=== PATIENT | female | born 1970 | race Caucasian/White ===

== ENCOUNTER 2022-12-29 11:30 | Outpatient (RCR) | payer OTHER, SELFPAY ==
--- NOTE | 2022-11-06 12:26 | HP.PTEVAL_ITS ---
Patient's Visit Information SHAY CUMMINGS is a 52 year old F referred to Physical Therapy by Dr. Kirsty Browning MD with a diagnosis of MIXED INCONTINENCE. Date of Evaluation: 11/06/22 Physical Therapist: Cady Mendenhall PT, Cert MDT - Visit Plan Frequency: 1x/Week Duration: 8-12 WKS Plan: PF THERAPY FOR STRENGTHENING, LENGTHENING/RELAXATION AND ENDURANCE TRAINING. URINARY URGE AND FREQUENCY EDUCATION. HEALTHY BLADDER HABIT EDUCATION. TRAINING IN COORDINATION OF PELVIC FLOOR MUSCULATURE WITH HIP AND CORE (TRANSVERSE ABDOMINUS) MUSCULATURE. POSTURE CORRECTION/STRENGTHENING. CORE STRENGTHENING. FLORY LE ROM, STRETCHING AND STRENGTHENING. TRAINING IN ABDOMINAL CAVITY PRESSURE MGMT WITH ADL'S. 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 Disability: NO. Present symptoms: LEAKING WITH COUGHING AND SNEEZING. ALSO RANDOMLY LEAKING URINE. DOES NOT ALWAYS MAKE IT TO THE BATHROOM IN TIME WHEN GETS URGE. PATIENT DENIES PAIN. Present since: ABOUT A YEAR. Pain Scale: N/A. Is it getting better, worse or staying the same: WORSENING. Commenced as a result of: NO APPARENT REASON. Worse: COUGHING, SNEEZING, AROUND CYCLE TIME. Better: NOTHING. Disturbed sleep: GETTING UP AT NIGHT TO URINATE 0-1 TIMES A NIGHT. Previous history/Previous treatment: NOTHING. Treatment this episode: DIET CHANGE RECOMMENDATIONS BY DR. BROWNING. Gait: NORMAL. How long can you delay the need to urinate: VARIES. Prolapse (Falling out feeling): NO. Frequency of Urination: 5 TO 8 TIMES A DAY. Ability to stop urine flow: YES. Ability to initiate urine stream: YES. Dyspareunia: YES BUT PATIENT RELATES IT TO DRYNESS. Bowel Incontinence: NO. Accidents: NO. Unexplained weight loss: NO. Imaging: NO X-RAYS OR MRI'S. US SHOWING GOOD BLADDER EMPTYING PER PATIENT REPORT. PMH/Recent major surgery: RUPTURED UTERUS 3RD . ANXIETY. 2 C-SECTIONS. SOME HISTORY OF LBP AND PERIODIC CHIROPRACTIC TREATMENTS (MAINLY NECK NOT LB PROBLEMS). - Objective Sitting/Standing Posture: FAIR. Active Correction of posture: NE. Other Observations: INDEP GAIT AND TRANSFERS. Sensory deficit: FLORY LE LIGHT TOUCH SENSATION GROSSLY INTACT AND SYMMETRICAL. ROM deficit: FLORY LE HIP ROTATION, HIP ADD, HS AND GASTROC SOLEUS COMPLEX TIGHTNESS. Motor deficit: FLORY LE'S 5/5 WITH MMT'ING EXCEPT HIPS 4/5. Dural Signs: NEGATIVE FLORY LE'S. Lumbar mvmt loss: flex - MIN. ext - MIN TO MOD. R SG - MIN. L SG - MIN. PATIENT DENIES PAIN WITH LUMBAR ROM TESTING. Core strength: POOR. Palpation: NO PELVIC EXAM TODAY. PATIENT COMMUNICATES A GOOD UNDERSTANDING OF HOW TO CONTRACT PF MUSCLES AND REPORTS ABILITY TO HOLD X 10 SECS. FUNCTIONAL SCREEN: Incontinence Impact Questionnaire Score: 2. Urogenital Distress Inventory Score: 4. TREATMENT: PELVIC FLOOR ANATOMY EDUCATION. HEP INSTRUCTION: QUICK FLICKS X 8, 3 TIMES A DAY AND DIAPHRAGMATIC BREATHING X 5 MIN A DAY. PATIENT DEMONSTRATED/COMMUNICATED A GOOD UNDERSTANDING OF ALL INSTRUCTIONS AFTER GIVEN. WRITTEN HEP PROVIDED. - Goals Goal 1:: DECREASE URINARY LEAKING TO ONE OR LESS TIMES A DAY Goal Time Frame: 8-12 Weeks Goal 2:: PATIENT WILL SUCCESSFULLY DELAY VOIDING FOR 30 MINUTES WHEN URGENCY OCCURS Goal Time Frame: 6-8 Weeks Goal 3:: PATIENT WILL DEMONSTRATE/COMMUNICATE 10 CONSISTENT AND CONSECUTIVE 10 SECOND PELVIC FLOOR MUSCLE CONTRACTIONS TO DEMONSTRATE IMPROVED PELVIC FLOOR ENDURANCE. Goal Time Frame: 8-12 Weeks Goal 4:: DEVELOP HEALTHY FLUID INTAKE HABITS WITH FLUID INTAKE OF ? BODY WEIGHT IN OUNCES PER DAY AND 2/3 BEING WATER. Goal Time Frame: 2-4 Weeks Goal 5:: NORMALIZE VOIDING FREQUENCEY TO EVERY 3-4 HOURS. Goal Time Frame: 4-6 Weeks Goal 6:: PATIENT WILL BE INDEP WITH A HEP/HOME INSTRUCTIONS FOR CONTINUED IMPROVEMENT ONCE FORMAL PHYSICAL THERAPY CONCLUDES Goal Time Frame: 8-12 Weeks - Anticipated Interventions Patient/Client Instruction: Educate patient on: Condition, Plan of Care, Risk Factors For the Purpose of:: To improve self management Therapeutic Exercise to Include: Strength training, Endurance training, Flexibilty training, Neuromotor development For the Purpose of:: To improve muscle performance and motor function, To i ncrease tolerance to activity/condition/position, To improve ability of physical actions for home/community/work/leisure Thank you for the opportunity to evaluate your patient. For Medicare and Medicare HMO plans, please review the plan of care and approve it. It will need to be FAXED BACK to us at [phone] for Medicare purposes. For Medicare only, by signing this I certify the plan of care. Please let me know if there are questions or concerns regarding this plan of care. Physician Signature: Date:
--- NOTE | 2022-12-29 12:02 | HP.PTDCSUM ---
Discharge Summary D/C summary: It has been my pleasure to treat SHAY CUMMINGS referred by Dr. Kirsty Browning MD, with the diagnosis of MIXED INCONTINENCE for a total of 7 visit(s). Discharge Date: 12/29/22 Please see the following information for a summary of their discharge status. Subjective Subjective: PATIENT REPORTS NEW EX'S ARE GOING WELL. STATES SHE ONLY HAS SOME LEAKING WHEN SHE MISSES DOING THE EX'S. ABLE TO LIFT BOXES WITH OUT LEAKING NOW. DID HAVE SOME LEAKING THE OTHER DAY WHILE CARRYING A BABY BUT HAD PRETTY FULL BLADDER. FOLLOW UP PENDING WITH DR. BROWNING IN JAN 2023. Overall Improvement % Improvement: 90 Objective Objective/Function: ALL GOALS HAVE BEEN MET AND PATIENT IS APPROPRIATE FOR AND AGREEABLE TO DISCHARGE. Goals Goal 1:: DECREASE URINARY LEAKING TO ONE OR LESS TIMES A DAY Goal Progress: Goal Met Goal 2:: PATIENT WILL SUCCESSFULLY DELAY VOIDING FOR 30 MINUTES WHEN URGENCY OCCURS Goal Progress: Goal Met Goal 3:: PATIENT WILL DEMONSTRATE/COMMUNICATE 10 CONSISTENT AND CONSECUTIVE 10 SECOND PELVIC FLOOR MUSCLE CONTRACTIONS TO DEMONSTRATE IMPROVED PELVIC FLOOR ENDURANCE. Goal Progress: Goal Met Goal 4:: DEVELOP HEALTHY FLUID INTAKE HABITS WITH FLUID INTAKE OF ? BODY WEIGHT IN OUNCES PER DAY AND 2/3 BEING WATER. Goal Progress: Goal Met Goal 5:: NORMALIZE VOIDING FREQUENCEY TO EVERY 3-4 HOURS. Goal Progress: Goal Met Goal 6:: PATIENT WILL BE INDEP WITH A HEP/HOME INSTRUCTIONS FOR CONTINUED IMPROVEMENT ONCE FORMAL PHYSICAL THERAPY CONCLUDES Goal Progress: Goal Met Plan Plan: D/C TO INDEP HEP. D/C Information d/c sentence: If there are questions or concerns regarding this patient's physical therapy, please feel free to call me at [phone]. Thank you for the referral of this patient. Sincerely, Cady Mendenhall, PT, Cert MDT
== END 2022-12-29 14:21 | disposition home or self-care (01) ==
LOC: PT 11:30
PROVIDERS: PCP Family Medicine; Referring Provider Urology; Visit Provider Urology
DX: N39.46 Mixed incontinence (principal)
CPT/HCPCS: 97162; 97530

== ENCOUNTER 2024-07-14 05:48 | Day surgery (SDC) | payer OTHER, SELFPAY ==
--- NOTE | 2024-07-07 11:02 | EKG12_ITS ---
Test Reason : PREOP Blood Pressure : */* mmHG Vent. Rate : 64 BPM Atrial Rate : 64 BPM P-R Int : 168 ms QRS Dur : 92 ms QT Int : 410 ms P-R-T Axes : 62 69 56 degrees QTcB Int : 422 ms Normal sinus rhythm Normal ECG Confirmed by Shayan Zamarripa ([id number]), design editor EDI JAMES ([id number]) on 07/08/2024 5:57:13 AM Referred By: Kirsty Pacheco Confirmed By: Shayan Zamarripa
[2024-07-07 11:55] LABS: Hematocrit 40.7 % (37-47); Hemoglobin 13.4 g/dL (12.0-15.0); Mean Corp Hgb Conc 32.9 g/dL (32-36); Mean Corpuscular Hgb 29.3 pg (27.0-32.0); Mean Corpuscular Volume 88.9 fL (81-99); Mean Platelet Vol. 9.3 fl (6.2-12.0); Platelet Count 283 K/mm3 (150-450); RBC Distribution Width CV 12.4 % (11.6-14.6); RBC Distribution Width SD 39.8 fl (35.1-43.9); Red Blood Count 4.58 M/mm3 (4.2-5.4); White Blood Count 5.4 K/mm3 (4.4-11.0)
[2024-07-07 12:23] LABS: Anion Gap 7 (5-15); BUN 12 mg/dL (7-18); BUN/Creat Ratio 15.1 RATIO (10-20); Calcium,Total 9.2 mg/dL (8.5-10.1); Chloride 104 mmol/L (98-107); Creatinine, Serum 0.79 mg/dL (0.55-1.02); EST Glomerular Filtration Rate 81 mL/min (>60); Est Glom Filt Rate - Afr Amer 98 mL/min (>60); Glucose 101 mg/dL (74-106); Potassium 4.2 mmol/L (3.5-5.1); Sodium Level 137 mmol/L (136-145)
[2024-07-07 12:24] LABS: Hemoglobin A1c 6.8 % (3.8-5.6)
[2024-07-14] VITALS (8 sets, daily range): BP systolic 111–125; BP diastolic 70–82; PULSE 59–79; RESP 14–20; TEMP 36.1–36.8; O2SAT 94–97; BMI 28.0
[2024-07-14] MEDS: 0.9% Normal Saline (1000mL) 1,000 ML 15 ML IV (06:46)
--- NOTE | 2024-07-14 07:06 | PRE.ANES_ITS ---
ASA Classification* ASA Classification ASA Classification: 2 Assessment & Plan Anesthesia* Anesthesia Assessment Anesthesia Assessment: Discussed sedation and/or anesthesia options, risks, benefits, and alternatives with patient/parents/legal guardian/POA. Questions invited. The patient/parents/legal guardian/POA seems to understand and agrees to proceed with anesthesia plan. Reviewed the physical assessment, medical history, allergy history and patient home medications list prior to surgery/procedure/anesthetic and documented any changes. Performed airway and anesthesia risk assessments. Anesthesia Type Anesthesia Type: General Anesthesia Focused Assessment* Temperature: 98.2 F Pulse Rate: 59 Blood Pressure: 125/70 Respiratory Rate: 16 Pulse Ox: 95 Airway Assessment Mouth opens: >3 cm Mallampati Score: II Focused Labs Anesthesia Preop lab: CBC WBC 5.4 K/mm3 (4.4-11.0) 07/07/24 11:35 RBC 4.58 M/mm3 (4.2-5.4) 07/07/24 11:35 Hgb 13.4 g/dL (12.0-15.0) 07/07/24 11:35 Hct 40.7 % (37-47) 07/07/24 11:35 Plt Count 283 K/mm3 (150-450) 07/07/24 11:35 CHEMISTRY Potassium 4.2 mmol/L (3.5-5.1) 07/07/24 11:35 Sodium 137 mmol/L (136-145) 07/07/24 11:35 BUN 12 mg/dL (7-18) 07/07/24 11:35 Creatinine 0.79 mg/dL (0.55-1.02) 07/07/24 11:35 Glucose 101 mg/dL (74-106) 07/07/24 11:35 TSH 2.12 uIU/mL (0.358-3.74) 03/23/13 09:31 COAG Pre-Assessment Diagnosis/Proposed Procedure Planned Operative Procedure(s): CYSTO MIDURETHERAL SLING Anesthesia History Anesthesia History - operator electronic warfare: Anesthesia History - operator electronic warfare Hx Hospitalization No 07/05/24 14:09 Any Problems With Anesthesia No 07/05/24 14:09 Cholinesterase deficiency No 07/05/24 14:09 You/Your Family Experience No 07/05/24 14:09 fever (hyperthermia) with Relationship Recent Exposure to Contagious No 07/14/24 06:32 Disease Does patient have nerve No 07/05/24 14:09 stimulator Patient instructed to have device shut off --Does patient have Pacemaker No 07/14/24 06:32 or ICD? When Was Last Pacemaker Check QUESTION #4 FULL TEXT: You/Your Family Experience fever (hyperthermia) with Anesthesia Last Oral Intake Last Oral intake: Last Oral Intake NPO since 21:00 07/14/24 06:32 Meds taken in AM with sips of No 07/14/24 06:32 water? Meds patient instructed to take am of surgery PONV PONV - operator electronic warfare: PONV - operator electronic warfare Female Yes 07/05/24 14:09 HX of Motion Sickness No 07/05/24 14:09 HX of N/V After Surgery No 07/05/24 14:09 Non-Smoker Yes 07/05/24 14:09 Duration of Surgery greater Yes 07/05/24 14:09 than 60 minutes Number of Risk Factors 3 07/05/24 14:09 PONV Score Moderate Risk 07/05/24 14:09 Height & Weight Height & Weight: Anesthesia: Height & Weight Height 5 ft 6 in 07/14/24 06:32 Weight: 79 kg 07/14/24 06:32 Body Mass Index (BMI) 28.0 07/14/24 06:32 Respiratory Assessment Respiratory Assessment - operator electronic warfare: Respiratory Tract Infection Hx - operator electronic warfare Hx Respiratory Tract Infection No 07/05/24 14:09 STOP Sleep Apnea STOP Sleep Apnea - operator electronic warfare: STOP Sleep Apnea - operator electronic warfare Hx Hypertension No 07/05/24 14:09 Hx Sleep Apnea No 07/05/24 14:09 CPAP BIPAP Do you snore loudly (louder No 07/05/24 14:09 than talking or can be heard Do you often feel tired/ No 07/05/24 14:09 fatigued/ sleepy during daytime? Has anyone observed you stop No 07/05/24 14:09 breathing during sleep? STOP Results Negative 07/05/24 14:09 QUESTION #5 FULL TEXT : Do you snore loudly (louder than talking or can be heard through closed doors)? 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 Specify any problems Hx of Preganancy in last 3 No 07/05/24 14:09 Months Nurse Filling Out Transfusion DSCHRIBER 07/05/24 14:09 & Questions: Date: 07/05/24 07/05/24 14:09 Time: 14:11 07/05/24 14:09 Patient unable to answer at this time (ie. confused, unrespo /Reproduction History /Reproductive History - operator electronic warfare: /Reproductive Hx- operator electronic warfare Hx Now No 07/05/24 14:09 Gestational Age (in weeks): EDC: Hx Hx Para Hx Section SAB No 07/05/24 14:09 Active Medications Active Medications: Current Medications Generic Name Dose Route Start Last Admin Trade Name Freq PRN Reason Stop Dose Admin Cefazolin Sodium 2 gm/ N/A 20 mls @ 400 mls/hr 07/14/24 07:30 IV 07/14/24 07:32 PREOP ONE Sodium Chloride 1,000 mls @ 15 mls/hr 07/14/24 06:25 07/14/24 06:46 IV 07/19/24 19:44 15 mls/hr .Q48H MP Administration Protocol [facility] Medical History Post-menopausal Anxiety Thyroid disease Diabetes Back pain Dietary restriction Non-smoker Leg cramps Home Medications ?Medication ?Instructions ?Recorded ?Last Taken ?Type dulaglutide 0.75 mg/0.5 mL 0.75 mg subcut QWEEK 07/05/24 07/06/24 History subcutaneous pen injector (Trulicity) escitalopram oxalate 20 mg tablet 20 mg PO DAILY 07/05/24 07/13/24 History estradiol 10 mcg vaginal tablet 10 mcg vaginal .COMPLEX 07/05/24 07/10/24 History (Yuvafem) metformin 500 mg tablet,extended 1,000 mg PO BID 07/05/24 07/13/24 History release 24 hr losartan 25 mg tablet 25 mg PO DAILY 07/14/24 07/13/24 History Allergy/AdvReac Type Severity Reaction Status Date / Time Sulfa (Sulfonamide Allergy Intermediate Hives Verified 07/14/24 06:26 Antibiotics) Surgical History Hx of colonoscopy Hx of wisdom tooth extraction Hx of lymph node excision History of Social History Smoking Status: Never smoker Review of Systems (Anesthesia) ROS Narrative System reviewed and no additional complaints, except as documented.
[2024-07-14 07:16] LABS: Bedside Glucose 164 mg/dL (74-106)
--- NOTE | 2024-07-14 07:50 | PCM.HP.STD ---
[facility] - General General Date of Service: 07/14/24 Chief Complaint: Stress urinary incontinence [facility] Narrative SHAY CUMMINGS, is a 54 F who presents for surgical intervention with a mid urethral sling for treatment of her stress urinary incontinence. Informed consent has been obtained. She has done outpatient testing including urodynamics. [facility] Medical History (Updated 07/14/24 @ 07:[address] Kirsty Pacheco MD) Stress incontinence Post-menopausal Anxiety Thyroid disease Diabetes Back pain Dietary restriction Non-smoker Leg cramps Home Medications ?Medication ?Instructions ?Recorded ?Last Taken ?Type dulaglutide 0.75 mg/0.5 mL 0.75 mg subcut QWEEK 07/05/24 07/06/24 History subcutaneous pen injector (Trulicity) escitalopram oxalate 20 mg tablet 20 mg PO DAILY 07/05/24 07/13/24 History estradiol 10 mcg vaginal tablet 10 mcg vaginal .COMPLEX 07/05/24 07/10/24 History (Yuvafem) metformin 500 mg tablet,extended 1,000 mg PO BID 07/05/24 07/13/24 History release 24 hr losartan 25 mg tablet 25 mg PO DAILY 07/14/24 07/13/24 History Allergy/AdvReac Type Severity Reaction Status Date / Time Sulfa (Sulfonamide Allergy Intermediate Hives Verified 07/14/24 06:26 Antibiotics) Surgical History Hx of colonoscopy Hx of wisdom tooth extraction Hx of lymph node excision History of Social History Smoking Status: Never smoker ROS Constitutional Constitutional: Reports systems reviewed and no addt'l complaints, except as documented; Denies anorexia, chills, fever(s), lethargy or weakness Eyes Eyes: Reports systems reviewed and no addt'l complaints, except as documented ENT HEENT: Reports systems reviewed and no addt'l complaints, except as documented Cardiovascular Cardiovascular: Reports systems reviewed and no addt'l complaints, except as documented; Denies abdominal pain, chest pain, diaphoresis, dizziness or dyspnea Respiratory/Chest Respiratory/Chest: Reports systems reviewed and no addt'l complaints, except as documented; Denies cough or dyspnea Gastrointestinal Gastrointestinal: Reports systems reviewed and no addt'l complaints, except as documented; Denies abdominal pain, nausea or vomiting Genitourinary Genitourinary: Reports systems reviewed and no addt'l complaints, except as documented and urinary incontinence; Denies dysuria, flank pain or hematuria Musculoskeletal Musculoskeletal: Reports systems reviewed and no addt'l complaints, except as documented; Denies abnormal gait or joint pain Integumentary Integumentary: Reports systems reviewed and no addt'l complaints, except as documented; Denies jaundice, lesions or new lesions Neurologic Neurologic: Reports systems reviewed and no addt'l complaints, except as documented; Denies behavior changes or weakness Psychiatric Psychiatric: Reports systems reviewed and no addt'l complaints, except as documented Endocrine Endocrinology: Reports systems reviewed and no addt'l complaints, except as documented Hematologic/Lymphatic Hematologic/Lymphatic: Reports systems reviewed and no addt'l complaints, except as documented Allergic/Immunologic Allergic/Immunologic: Reports systems reviewed and no addt'l complaints, except as documented Vital Signs Vital Signs Vital Signs: 07/14/24 06:32 07/14/24 06:32 07/14/24 07:06 Temperature 98.2 F 98.2 F Temperature Source Temporal Pulse Rate 59 L 59 L Respiratory Rate 16 16 Respiratory Pattern Normal Blood Pressure 125/70 H 125/70 H Blood Pressure Mean 88 Blood Pressure Source Monitor Blood Pressure Position Semi-Fowlers Blood Pressure Location Right Arm Pulse Ox 95 95 Oxygen Delivery Method Room Air Weight Weight: 79 kg Body Mass Index (BMI) 28.0 Physical Exam Const alert, oriented x3 and no apparent distress General Appearance: cooperative, comfortable and well kempt HEENT normocephalic, head/scalp atraumatic, hearing grossly normal bilaterally, external nose normal and moist oral mucous membranes Eyes General Eye: normal appearance of both eyes Neck supple General: normal visual inspection and trachea midline Lymph Lymphatic: no lymphedema noted Chest inspection of chest normal Chest: symmetrical chest wall rise Resp normal respiratory effort, normal air movement and no retractions Cardio regular rate and regular rhythm GI soft to palpation, non-tender and non-distended no CVA tenderness Back/Spine no CVA tenderness Extremity normal to inspection Skin no rashes or lesions noted, no jaundice, no petechiae and no mottling Neuro oriented x3, CN's II-XII intact bilaterally and moves all extremities Psych mental status grossly normal and thought process normal Results Lab / Micro Data 07/07/24 11:35 07/07/24 11:35 Labs: Laboratory Results - last 24 hr 07/14/24 06:39: POC Glucose 164 H Assessment & Plan Assessment/Plan (1) Stress incontinence: PLAN: Plan Mid urethral sling insertion, cystoscopy
--- NOTE | 2024-07-14 07:54 | OP.PCM_ITS ---
Problems Associated Problem List Diagnoses (1) Stress incontinence: Operative Report (Standard) Operative Information Date of Procedure: 07/14/24 Pre-Operative Diagnosis: Stress urinary incontinence Post-Operative Diagnosis: Same Surgery/Procedure Performed: Altis mid urethral sling, cystoscopy telephone switchboard operator: No Type of Anesthesia: General RN Documented Start/Stop Times: Operation Date: 07/14/24 07:30 Case Time Into Pre-Op 07/14/24 06:11 Out of Pre-Op 07/14/24 07:48 Anesthesia Start 07/14/24 07:59 Into Room 07/14/24 07:59 Procedure Start 07/14/24 08:16 Procedure End 07/14/24 08:28 Anesthesia End 07/14/24 08:37 Out of Room 07/14/24 08:37 Into Recovery 07/14/24 08:40 Out of Recovery 07/14/24 09:01 Into Phase II Recovery 07/14/24 09:02 Procedure Start Time: 08:16 Procedure Stop Time: 08:28 Select all DRAINS/GRAFTS/IMPLANTS that apply: Implanted device Implanted device details: Altis mid urethral sling Estimated Blood Loss: 15cc Specimen collected: No Description of surgery: The patient is a 54-year-old female with stress urinary incontinence who has undergone testing in the office and presents for surgical intervention. Informed consent has been obtained. She was taken to the operating room and placed on the operating room table. Lesion monitor the head, neck, airway, IV access and vital signs throughout the case. Once anesthesia was appropriately administered, she is placed into exaggerated dorsal lithotomy in Trendelenburg position. She was prepped and draped in usual sterile fashion. A 16 Vietnamese Barajas catheter was inserted to straight drain and the bladder was emptied. The mid urethra was isolated with Allis clamps. The submucosa was injected with 1% lidocaine with epinephrine for hydrostatic dissection and hemostatic control. A midline vertical incision was made approximately 1.5 cm in length. Sharp and blunt dissection was performed on either side of the urethra with care being taken to avoid entry into the urethra or the vaginal mucosa. The Altis mid urethral sling was placed using the provided trocars into the obturator co mplexes bilaterally. Using the tensioning suture, the sling lay flat against the urethra and the suture was cut. The incision was closed using running interlocking 2-0 Vicryl. The patient was then taken out of Trendelenburg and the Barajas catheter was removed. The cystoscope was inserted through the urethra under direct visualization into the urinary bladder. There was no evidence of foreign body, mass, erythema, ulceration or injury to the urinary bladder or urethra. The cystoscope was then removed and the patient was awakened and taken to the recovery room in good condition. There were no complications during this procedure. Surgical Findings: Altis inserted with no difficulty or complication Complications Complications: No Admit VTE Documentation VTE Present on Admission: Yes VTE Mechan Device Prophylaxis: SCD's VTE Pharm Prophylaxis ordered?: No Reason prophylaxis not ordered: Treatment Not Indicated
--- NOTE | 2024-07-14 07:57 | EX.PCM.DISCH ---
Discharge Instructions Diet Discharge Diet: No restrictions Activity Discharge Activity: Return to Normal Activity and May Shower May resume sexual activity in: 4 weeks Lifting Restrictions: 5 pounds Additional Activity Instructions:: No exercise, no strenuous activity, no sexual activity, no tub bathing, swimming or hot tubs Dressing / Incision Call your doctor if your incision/area has: Continuous Slow Oozing, Sudden Increased Bleeding, Increased Pain/ Swelling and Foul Smelling Discharge Call your doctor if you observe: Fever of 101 or Higher, Inability to urinate and Inability to have a bowel movement Cleanse incision/area with: Keep Dressing Clean & Dry Follow Up Care Please Follow Up With: Kirsty Pacheco MD When: The office will call to make follow up arrangements. Test Results: Test results from this visit will be discussed in further detail at your follow-up appointment, if applicable. Discharge Plan Admission Attending Provider: Kirsty Pacheco Primary Care Provider: Mary Kee Consulting Providers: Maria A Perrin Instructions Print Language: Cymraes Discharge Orders/Prescriptions Prescriptions: New oxycodone-acetaminophen 5-325 mg tablet 1 tab PO Q8H PRN (Reason: pain) 3 Days Qty: 10 0RF cephalexin 500 mg capsule 500 mg PO Q12 3 Days Qty: 6 0RF No Action escitalopram oxalate 20 mg tablet 20 mg PO DAILY estradiol [Yuvafem] 10 mcg tablet 10 mcg vaginal .COMPLEX Rx Instructions: 10 mcg vaginally 2x week; Trulicity 0.75 mg/0.5 mL pen injector 0.75 mg subcut QWEEK metformin 500 mg tablet extended release 24 hr 1,000 mg PO BID losartan 25 mg tablet 25 mg PO DAILY Other Ambulatory Orders: ,Urine (Routine) Timeframe: 20240714 Facility: [facility] - Location: Laboratory Ordered By: Dr. Kirsty Pacheco Referrals / Follow Up: Quique Brito DO [Non-Staff] - Disposition Disposition (needs filled in before D/C Order can be placed): Home, Self Care
[2024-07-14] MEDS: Cefazolin 2 GM in Syringe IV (08:08)
[2024-07-14] MEDS: Lidocaine 1% /Epi 1:100 (20ml) 20 ML Vial (08:17)
--- NOTE | 2024-07-14 08:42 | PCM.POST.ANE ---
Anesthesia: Postop Eval I Current Vital Signs Temperature: 97.5 F Pulse Rate: 79 Blood Pressure: 116/82 Respiratory Rate: 20 Pulse Ox: 97 Oxygen Delivery Method: Nasal Cannula Oxygen Flow Rate (L/min): 2 Assessment Airway patent: Yes Spontaneous unlabored respirations: Yes Mental status: Awake nausea: No Vomiting: No Anesthesia Complication: No Fluid Hydration Crystalloid volume administer (ml): 600 Total IV fluid infused: 600 Progress Note Anesthesia document: Postop Eval 1 completed: Yes
--- NOTE | 2024-07-14 08:49 | POSTOPAN2_ITS ---
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 Spontaneous unlabored Yes 07/14/24 08:44 [employer]EDGE [email or web address] respirations Mental status Awake 07/14/24 08:44 [employer]EDGE [email or web address] nausea No 07/14/24 08:44 [employer]EDGE [email or web address] Vomiting No 07/14/24 08:44 DREDGE [email or web address] Anesthesia Postop Eval I: Fluid Summary Crystalloid volume administer 600 07/14/24 08:44 [email or web address] (ml) Colloids volume administered ( ml) Blood Product volume administered (ml) Total IV fluid infused 600 07/14/24 08:44 DREDGE [email or web address] Anesthesia Postop Eval I: Summary Notes Anesthesia Complication No 07/14/24 08:44 DREDGE [email or web address] Anesthesia Complication Comment: Post-operative progress note Anesthesia: Postop Eval II Evaluation Mental status: Awake Pain Level: 1 nausea: No Vomiting: No
--- NOTE | 2024-07-14 08:49 | PCM.POSTANE2 ---
Anesthesia Postop Eval I Sum Postop Eval Completion status Anesthesia document: Postop Eval 1 completed: Yes Anesthesia Postop Eval I Summary Anesthesia Postop Eval I Summary: Anesthesia Postop Eval I: Assessment Summary Airway patent Yes 07/14/24 08:44 G[email or web address] Spontaneous unlabored Yes 07/14/24 08:44 [employer] [email or web address] respirations Mental status Awake 07/14/24 08:44 G[employer] [email or web address] nausea No 07/14/24 08:44 G[employer] [email or web address].[email or web address] Vomiting No 07/14/24 08:44 G[email or web address] Anesthesia Postop Eval I: Fluid Summary Crystalloid volume administer 600 07/14/24 08:44 GAME [email or web address] (ml) Colloids volume administered ( ml) Blood Product volume administered (ml) Total IV fluid infused 600 07/14/24 08:44 GAME [email or web address] [email or web address] Anesthesia Postop Eval I: Summary Notes Anesthesia Complication No 07/14/24 08:44 GAME [email or web address] Anesthesia Complication Comment: Post-operative progress note Anesthesia: Postop Eval II Evaluation Mental status: Awake Pain Level: 1 nausea: No Vomiting: No
== END 2024-07-14 10:33 | disposition home or self-care (01) ==
LOC: SDC 05:48 → AC 05:49
PROVIDERS: Anesthesiology; Referring Provider Urology; Visit Provider Urology
PROC: 0TJB8ZZ Inspection of Bladder, Via Natural or Artificial Opening Endoscopic (ICD-10-PCS; CPT 57288; principal; 2024-07-14 07:20)
DX: N39.3 Stress incontinence (female) (male) (principal); E11.9 Type 2 diabetes mellitus without complications; Z79.84 Long term (current) use of oral hypoglycemic drugs; Z79.85 Long-term (current) use of injectable non-insulin antidiabetic drugs
CPT/HCPCS: 51990; 00860; 36415; 80048; 82962; 83036; 85027; 93005; J2405